=== PATIENT | female | born 1940 | race Caucasian/White ===

== ENCOUNTER → 2023-10-18 12:31 | Outpatient (REF) | payer MEDICARE, SELFPAY | LOC: WOUND 12:31 | PROVIDERS: ATTENDING PHYSICIAN Surgery; FAMILY PHYSICIAN Family Medicine | DX: I89.0 Lymphedema, not elsewhere classified (principal); I87.2 Venous insufficiency (chronic) (peripheral); M79.605 Pain in left leg | CPT/HCPCS: 99213 ==

== ENCOUNTER → 2024-11-03 10:32 | Outpatient (REF) | payer MEDICARE, SELFPAY | LOC: RAD 10:32 | PROVIDERS: ATTENDING PHYSICIAN Nurse Practitioner Adult Health | DX: R09.89 Other specified symptoms and signs involving the circulatory and respiratory systems (principal) | CPT/HCPCS: 70486 ==